=== PATIENT | male | born 2000 | race Caucasian/White ===

== ENCOUNTER 2022-11-06 15:15 | Emergency (ER) | payer OTHER | END 2022-11-06 16:40 | disposition home or self-care (01) | LOC: JD.ED 15:15 | DX: S93.401A Sprain of unspecified ligament of right ankle, initial encounter (principal); W01.0XXA Fall on same level from slipping, tripping and stumbling without subsequent striking against object, initial encounter | CPT/HCPCS: 73630-26-RT; 73630-RT; 99283 ==